=== PATIENT | female | born 1970 | race Caucasian/White ===

== ENCOUNTER → 2017-02-23 | Day surgery (SDC) | payer BC ==
[~2017-02-23] MED LIST: AMIT25TA PO; ASPI81TA50 PO; CYCL10TA2 PO; DILT180C2 PO; FENTANYL PF 100 MCG/2 ML VIAL. IV PRN; GABA-585 PO; HYDROMORPHONE 2 MG/ML VIAL. IV PRN; IV RINGERS,LACTATED 1000ML 1,000 ML IV SCH; LIDOCAINE 1% 1 ML SYRINGE. ID PRN; LIDOCAINE 2% PF Vial for OR 5 ML VIAL. ONE; MELO-150 PO; MORPHINE SULFATE 2 MG/ML DISP.SYRIN. IV PRN; OMEP40CA5 PO; ONDANSETRON PF 4 MG/2 ML VIAL. IV PRN; PROCHLORPERAZINE 10 MG/2 ML VIAL. IV PRN; PROPOFOL 20 ML IV ONE; PROPOFOL 40 ML IV ONE; TRAM50TA PO
--- NOTE | 2017-02-23 11:32 | PDOC1 ---
History and Physical Date of Admission Date of Admission DATE: 02/23/17 TIME: 11:25 Source Source: Chart review, Patient History of Present Illness History of Present Illness 46 y/o female with 4-5 month h/o "dysphagia" with sensation of food hanging up in cervical area. No regurgitation. Long h/o heartburn on BID PPI. No prior EGD. S/p sleeve gastrectomy. No PUD, GB, liver or pancreas history. Occasional constipation. No prior colonoscopy. GI family history positive for gastric cancer in mother. Past Medical History Cardiovascular: Other ("palpitations") Musculoskeletal: Osteoarthritis Rheumatologic: Fibromyalgia Past Surgical History Past Surgical History: , Tubal Ligation, Hysterectomy, Other (sleeve gastrectomy) Family History Family History: Cancer (gastric, breast), Coronary Artery Disease, Diabetes, Hypertension, Stroke Social History Smoke: Quit ALCOHOL: occassional Drugs: None Current Medications Current Medications Current Medications Ondansetron HCl (Zofran) 4 mg PRN Q6HRS PRN IV NAUSEA/VOMITING; Start 02/23/17 at 07:00; Stop 02/24/17 at 06:59; Status UNV Fentanyl Citrate (Fentanyl 2ml Vial) 25 mcg PRN Q5MIN PRN IV MILD PAIN; Start 02/23/17 at 07:00; Stop 02/24/17 at 06:59; Status UNV Fentanyl Citrate (Fentanyl 2ml Vial) 50 mcg PRN Q5MIN PRN IV MODERATE PAIN; Start 02/23/17 at 07:00; Stop 02/24/17 at 06:59; Status UNV Morphine Sulfate 1 mg 1 mg PRN Q10MIN PRN IV SEVERE PAIN; Start 02/23/17 at 07: 00; Stop 02/24/17 at 06:59; Status UNV Lactated Ringer's (Iv Lactated Ringers) 1,000 ml @ 0 mls/hr Q0M IV ; Start at 07:00; Stop 02/23/17 at 18:59; Status UNV Lidocaine HCl 2 ml PRN 1X PRN ID PRIOR TO IV START; Start 02/23/17 at 07:00; Stop 02/24/17 at 06:59; Status UNV Hydromorphone HCl (Dilaudid) 0.5 mg PRN Q10MIN PRN IV SEV PAIN, Second choice; Start 02/23/17 at 07:00; Stop 02/24/17 at 06:59; Status UNV Prochlorperazine Edisylate (Compazine) 5 mg PACU PRN PRN IV NAUSEA, MRX1; Start 02/23/17 at 07:00; Stop 02/24/17 at 06:59; Status UNV ROS Review of System Otherwise negative. Physical Exam General: Alert, Oriented X3, Cooperative, No acute distress Lungs: Clear to auscultation Heart: S1S2, RRR, no gallops, no murmurs Abdomen: Normal bowel sounds, Soft, No tenderness, No hepatosplenomegaly, No masses Rectal Exam: not examined Extremities: No cyanosis, No edema Skin: No significant lesion Neuro: Normal gait, Normal speech, Strength at 5/5 X4 ext, Normal tone, Sensation intact, Cranial nerves 3-12 NL, Reflexes 2+ Vitals Vitals See nurses' notes. VTE Prophylaxis Ordered VTE Prophylaxis Devices: No VTE Pharmacological Prophylaxi: No Assessment/Plan Assessment/Plan IMP: "Dysphagia"/chronic reflux Plan: EGD. SINTIA TOBIAS MD Feb 23, 2017 11:31
[2017-02-23 12:30] VITALS: BP 135/77
--- NOTE | 2017-02-24 14:44 | PATHOLOGY ---
PATHOLOGY REPORT * * * * * * * * FINAL DIAGNOSIS: A. Esophageal biopsy, distal esophagus: - Segments of esophagogastric and gastric mucosa showing mild to moderate chronic inflammation. B. Gastric biopsy, antrum: - Mild chronic gastritis. COMMENT: Sections of the distal esophageal biopsy reveal segments of esophagogastric and gastric mucosa showing mild to focal moderate chronic inflammation. An immunoperoxidase stain for Helicobacter is obtained. No Helicobacter organisms are identified. There is no evidence of Jacob's change, dysplasia or malignancy. Sections of the gastric antral biopsy reveal a segment of gastric body mucosa and a segment of gastric antral/body transition mucosa. The gastric body mucosa shows congestion and focal slight chronic inflammation. The gastric antral/body transition mucosa shows congestion and mild chronic inflammation. An immunoperoxidase stain for Helicobacter is obtained. No Helicobacter organisms are identified. (JPM:csd; d/t: 02/24/2017) REPORT ELECTRONICALLY SIGNED BY: Erwin Barnett M.D. DATE/TIME: 02/24/2017 14:43 * * * * * * * * GROSS PATHOLOGY: A. Received in formalin labeled "Nancy Paige distal esophagus," are six segments of dutta soft tissue measuring 1.0 x 1.0 x 0.1 cm in aggregate dimensions and ranging from 0.1 to 0.5 cm in maximum dimension. The specimen is submitted entirely in cassette A1. B. Received in formalin labeled "Nancy Paige, antrum," is a segment of dutta soft tissue measuring 0.4 cm in maximum dimension. The specimen is submitted entirely in cassette B1. (CAA:JPM:csd; 02/23/2017) INITIAL CPT CODE(S): A; 98132, 89126 B; 34998, 60360 Professional services performed by [facility] at [address] [address] Technical services performed by [facility] at [address] [place] [address], [address] [address]. SPECIMEN(S) RECEIVED: A.Distal esophagus B.Antrum CLINICAL HISTORY: Dysphagia PATIENT: NANCY PAIGE /AGE: 907/13/1970 (Age: 46) PATIENT #: [id number] ALT CASE #: SPECIMEN COLLECTION DATE: 02/23/2017 SPECIMEN RECEIVED DATE: 02/23/2017 [facility] - [id number] [place] [address] - PHONE: [phone] * * * END OF REPORT * * *
== END | disposition home or self-care (01) ==
LOC: ENDOS 10:45
PROVIDERS: ATTEND Internal Medicine Gastroenterology
DX: K21.0 Gastro-esophageal reflux disease with esophagitis (principal); K22.8 Other specified diseases of esophagus; Z98.84 Bariatric surgery status; E66.9 Obesity, unspecified; K21.9 Gastro-esophageal reflux disease without esophagitis; M19.90 Unspecified osteoarthritis, unspecified site; Z90.710 Acquired absence of both cervix and uterus; Z98.51 Tubal ligation status
CPT/HCPCS: 88305; 88342; J2704; G0641